=== PATIENT | male | born 1955 | race Caucasian/White ===

== ENCOUNTER → 2022-09-28 09:16 | Outpatient (BNVA) | payer MEDICARE, SELFPAY | PROVIDERS: PCP Nurse Practitioner; Referring Provider Neurological Surgery; Visit Provider Psychiatry & Neurology Neurology | DX: G43.909 Migraine, unspecified, not intractable, without status migrainosus (principal); M48.02 Spinal stenosis, cervical region; G40.909 Epilepsy, unspecified, not intractable, without status epilepticus; Z86.711 Personal history of pulmonary embolism; Z79.01 Long term (current) use of anticoagulants | CPT/HCPCS: 80076; 80184; 80185; 85025; 99203 ==